=== PATIENT | female | born 1980 | race American Indian/Alaskan Native ===

== ENCOUNTER 2018-12-04 08:37 | Day surgery (SDC) | payer MEDICAID ==
[2018-12-04] MEDS ORDERED: LACTATED RINGERS 1,000 ML IV SCH (08:52)
[2018-12-04] MEDS ORDERED: CLEOCIN 900 MG/50 mL 900 MG/50 ML BAG IV NR (09:30)
[2018-12-04] MEDS ORDERED: SILVER NITRATE TP ONE (09:47)
[2018-12-04] MEDS ORDERED: METHERGINE IM ONE (09:47)
[2018-12-04] MEDS ORDERED: NEURONTIN ONE (09:49)
[2018-12-04] MEDS ORDERED: VERSED ONE (09:49)
[2018-12-04] MEDS ORDERED: SUBLIMAZE ONE (09:52)
[2018-12-04] MEDS ORDERED: DIPRIVAN 10 MG/ML IV ONE (09:52)
--- NOTE | 2018-12-04 10:26 | Short Stay Summary ---
Short Stay Documentation Date of service: 12/04/18 - History Principal diagnosis: Missed H&P: obtained from office Past Medical History: other (anxiety and depression) Past Surgical History: cholecystectomy Social history: single - Allergies and Medications Current Medications: Allergies Penicillins Allergy (Severe, Verified 12/04/18 08:52) Anaphylaxis Home Medications Medication Instructions Recorded Confirmed Last Taken Type PARoxetine 0.5 mg PO PRN PRN 12/04/18 12/04/18 12/03/18 09:00 History Xanax 30 mg PO DAILY 12/04/18 12/04/18 12/03/18 09:00 History Active Medications Lactated Ringer's (Lactated Ringers) 1,000 mls @ 75 mls/hr IV DIRECT FERNANDO Stop: 12/04/18 23:59 Last Admin: 12/04/18 09:25 Dose: 75 mls/hr Documented by: - Physical exam General appearance: no acute distress HEENT: Atraumatic Lungs: Clear to auscultation, Normal air movement Breasts: deferred Heart: Regular rate, Normal S1, Normal S2 Gastrointestinal: normal, normoactive bowel sounds Female Genitourinary: normal Rectal Exam: deferred Extremities: no ischemia, No edema - Brief post op/procedure progress note Date of procedure: 12/04/18 Pre-op diagnosis: Missed Post-op diagnosis: same Procedure: D&E Anesthesia: GETA Findings: slightly enlarged uterus, products of conception Surgeon: ALLYSON TANG Estimated blood loss: other (350) Pathology: list Specimen disposition: to lab Condition: stable - Hospital course Hospital course: unremarkable - Disposition Condition at discharge: Good Disposition: DC-01 TO HOME OR SELFCARE Short Stay Discharge Plan Activity: advance as tolerated Weight Bearing Status: Weight Bear as Tolerated Diet: regular Follow up with: ALLYSON TANG MD [Staff Physician] - 14 Days Prescriptions: Ibuprofen [Motrin] 800 mg PO Q8HR PRN #40 tablet PRN Reason: Pain, Moderate (4-6) HYDROcodone/ACETAMINOPHEN [[place] 5-325 Tablet] 2 each PO Q4H #20 tablet
--- NOTE | 2018-12-04 10:30 | Anesthesia Consultation ---
Anesthesia Consult and Med Hx Date of service: 12/04/18 - Airway Anesthetic Teeth Evaluation: Good ROM Head & Neck: Adequate Mental/Hyoid Distance: Adequate Mallampati Class: Class II Intubation Access Assessment: Probably Good - Pulmonary Exam CTA: Yes - Cardiac Exam Cardiac Exam: RRR - Pre-Operative Health Status ASA Pre-Surgery Classification: ASA2 Proposed Anesthetic Plan: General
[2018-12-04] MEDS ORDERED: TORADOL IV PRN (10:31)
--- NOTE | 2018-12-04 10:31 | Anesthesia Day of Surgery ---
Anesthesia Day of Surgery - Day of Surgery Patient Examined: Yes Patient H&P Reviewed: Yes Patient is NPO: Yes Beta Blockers: No Cardiac Clearance: No Pulmonary Clearance: No Deandre's Test: N/A
[2018-12-04] MEDS ORDERED: DECADRON ONE (10:43)
[2018-12-04] MEDS ORDERED: ZOFRAN ONE (10:43)
[2018-12-04] MEDS ORDERED: ROBINUL ONE (10:49)
[2018-12-04] MEDS ORDERED: TORADOL ONE (10:52)
[2018-12-04] MEDS ORDERED: NACL 0.9% IR ONE (10:55)
[2018-12-04] MEDS ORDERED: NEURONTIN PO NR (11:00)
[2018-12-04] MEDS ORDERED: VERSED IV NR (11:00)
--- NOTE | 2018-12-04 11:27 | Operative Report ---
Operative Report Operative Report: Preoperative diagnoses: Missed Postoperative diagnosis: Same Procedure: D and E Surgeon: Nadine Carrasquillo M.D. Anesthesia: MAC EBL: 350 mL Urine output: 100 mL clear Complications: None Specimens: Products of conception Procedure: Patient was taken to the OR with IV running and in place. She will probably identified as herself. She was given adequate anesthesia. She was then placed in the dorsal lithotomy position and prepped and draped in normal sterile fashion. Attention was turned to the patient's vagina. Her bladder was then drained of approximately 200 mL of clear yellow urine. A bivalve speculum was placed the patient's vagina. Cervix was visualized and grasped with a single-tooth tenaculum. The cervix was then gently dilated up to approximately 29 mm. Following this, a # 11 suction curette was inserted into the patient's uterus at the level of the fundus. It was then attached to the suction machine and the curettage was performed removing products of conception. At one point the curet was removed and a large banjo curet was introduced into the uterus to further retrieve any additional products. Following this the suction curette was reintroduced and more tissue was obtained. It was excellent hemostasis noted at the end of this portion of the procedure. At this point all instruments were removed from the patient's vagina. She was then awakened and taken to recovery in stable condition. She tolerated the procedure well
[2018-12-04] MEDS: DILAUDID IV PRN ×2 (11:35→11:50)
[2018-12-04 13:01] VITALS: BP 114/58
== END 2018-12-04 12:55 | disposition home or self-care (01) ==
LOC: OR 08:37
PROVIDERS: ATTEND Obstetrics & Gynecology
DX: O02.1 Missed abortion (principal); Z88.0 Allergy status to penicillin; Z79.899 Other long term (current) drug therapy
CPT/HCPCS: 59820; 86850; 86900; 86901; 88305; J1100; J1170; J1885; J2250; J2405; J2590; J2704; J3010; J7120; J2210